=== PATIENT | male | born 1980 | race Caucasian/White ===

== ENCOUNTER 2020-10-08 13:59 | Outpatient (CLI) | payer OTHER | END 2020-10-08 14:00 | disposition home or self-care (01) | LOC: COV 13:59 | PROVIDERS: ATTEND Registered Nurse | DX: R05 Cough (principal); R07.0 Pain in throat; R19.7 Diarrhea, unspecified; R09.81 Nasal congestion; J34.89 Other specified disorders of nose and nasal sinuses; Z20.822 Contact with and (suspected) exposure to COVID-19 ==